=== PATIENT | female | born 1945 | race Caucasian/White ===

== ENCOUNTER 2016-10-31 15:51 | Emergency (ER) | payer MEDICARE, OTHER ==
[~2016-10-31] VITALS: Ht 165.1 cm; Wt 97.3 kg
[2016-10-31 16:05] VITALS: BP 152/92; PULSE 95; RESP 16; TEMP 99.2; O2SAT 95
--- NOTE | 2016-10-31 16:58 | PD ---
HPI Chief Complaint: Skin Problem Time Seen by Provider: 16:47 Travel History International Travel<30 days: No Contact w/Intl Traveler<30days: No Traveled to known affect area: No History of Present Illness HPI This 71-year-old female is complaining of a red hot rash on her right thigh. sHe has been having it for 3 or 4 days. She had a small amount of drainage from that she went to a ceramic chemist earlier today who made a small incision and then told her to come here. She is not aware of any fever or chills. She does not have diabetes. She has had multiple boils in the past. PFSH Past Medical History Cardiovascular Problems: Yes (htn on meds) Respiratory: Yes (asthma) ?: Not Social History Tobacco Use: No Allergies-Medications (Allergen,Severity, Reaction): Coded Allergies: No Known Allergies (Unverified , 10/31/16) Reported Meds & Prescriptions Reported Meds & Active Scripts Active Reported Loratadine 10 Mg Tab 10 Mg PO DAILY Levothyroxine (Levothyroxine Sodium) 100 Mcg Tab 100 Mcg PO DAILY Digestive Advantage Probiotic (Lactobacillus Rhamnosus (GG)) 1 Chew 1 Tab CHEW DAILY Glucosamine-Chondroitin 500-400 Mg Cap 1 Cap PO BID Alphagan P Opth Drops (Brimonidine Tartrate) 0.1% Soln 1 Drop EACH EYE BID Lumigan Opth Drops (Bimatoprost) 0.01% Soln 1 Drop EACH EYE HS Atorvastatin (Atorvastatin Calcium) 40 Mg Tab 40 Mg PO HS Amlodipine (Amlodipine Besylate) 10 Mg Tab 10 Mg PO DAILY Diovan Hct (Valsartan-Hydrochlorothiazide) 160-25 Mg Tab 1 Tab PO DAILY Omeprazole 20 Mg Tab 20 Mg PO BID Review of Systems General / Constitutional: No: Fever, Chills Eyes: No: Diploplia, Blurred Vision Cardiovascular: No: Chest Pain or Discomfort, Palpitations Respiratory: No: Cough, Shortness of Breath Gastrointestinal: No: Nausea, Vomiting Genitourinary: No: Frequency, Dysuria Musculoskeletal: No: Myalgias Skin: Positive Rash Neurologic: No: Weakness, Dizziness Hematologic/Lymphatic: No: Easy Bruising Physical Exam Narrative GENERAL: Well-developed female SKIN: Warm and dry. There is an area of erythema on the medial anterior aspect of the right thigh. There is some central induration HEAD: Atraumatic. Normocephalic. EYES: Pupils equal and round. No scleral icterus. No injection or drainage. ENT: No nasal bleeding or discharge. Mucous membranes pink and moist. NECK: Trachea midline. No JVD. GASTROINTESTINAL: Abdomen soft, non-tender, nondistended. Hepatic and splenic margins not palpable. MUSCULOSKELETAL: No obvious deformities. No clubbing. No cyanosis. No edema. NEUROLOGICAL: Awake and alert. No obvious cranial nerve deficits. Motor grossly within normal limits. Normal speech. PSYCHIATRIC: Appropriate mood and affect; insight and judgment normal. Data Data Last Documented VS Vital Signs Date Time Temp Pulse Resp B/P Pulse Ox O2 Delivery O2 Flow Rate FiO2 10/31/16 16:05 99.2 95 16 152/92 95 Orders Sulfamet-Trimeth Ds 800-160 Mg (Bactrim (10/31/16 17:00) Lidocai-Epi 1%-1:100,000 Inj (Xylocaine- (10/31/16 17:00) MDM Medical Decision Making Medical Screen Exam Complete: Yes Emergency Medical Condition: Yes Medical Record Reviewed: No Differential Diagnosis Differential includes cellulitis of the thigh, abscess of the thigh Narrative Course I&D was performed and pus was obtained. Xeroform packing was inserted. The patient is to continue her Bactrim which she got from a ceramic chemist Procedures Procedure Narrative After verbal consent was obtained. He was cleaned with Betadine. It was anesthetized with 1% lidocaine with adrenaline. Incision was made and thick pus obtained the area of induration. 10 cm of packing iodoform quarter-inch was inserted. Patient tolerated the procedure well Diagnosis Primary Impression: Abscess of right thigh Disposition: DISCHARGE HOME Condition: Stable Jairo Velázquez MD Oct 31, 2016 16:58
[2016-10-31] MEDS ORDERED: SULFAMETHOXAZOLE-TRIMETHOPRIM DS 800-160 MG TAB PO ONE (17:00)
[2016-10-31] MEDS ORDERED: LIDOCAINE 1%/EPINEPHrine 1:100,000 SOLN 20 ML VIAL INFIL ONE (17:00)
[2016-10-31] MEDS ORDERED: ATOR40TA16 PO (17:05)
[2016-10-31] MEDS ORDERED: LUMI0.01 EACH EYE (17:05)
[2016-10-31] MEDS ORDERED: LEVO100T5 PO (17:05)
[2016-10-31] MEDS ORDERED: OMEP20TA PO (17:05)
[2016-10-31] MEDS ORDERED: DIOV160T9 PO (17:05)
[2016-10-31] MEDS ORDERED: LORA10TA PO (17:05)
[2016-10-31] MEDS ORDERED: PROB1CHW4 CHEW (17:05)
[2016-10-31] MEDS ORDERED: ALPH0.1S EACH EYE (17:05)
[2016-10-31] MEDS ORDERED: GLUC1CAP14 PO (17:05)
[2016-10-31] MEDS ORDERED: AMLO10TA2 PO (17:05)
[2016-10-31 17:55] VITALS: BP 145/92; PULSE 92; RESP 18; O2SAT 98
== END 2016-10-31 17:55 | disposition home or self-care (01) ==
LOC: PHED 15:51
DX: L02.415 Cutaneous abscess of right lower limb (principal); I10 Essential (primary) hypertension; J45.909 Unspecified asthma, uncomplicated; B95.61 Methicillin susceptible Staphylococcus aureus infection as the cause of diseases classified elsewhere
CPT/HCPCS: 10061; 86403; 87070; 87186; 87205

== ENCOUNTER 2016-11-02 16:59 | Emergency (ER) | payer MEDICARE, OTHER ==
[~2016-11-02] VITALS: Ht 167.6 cm; Wt 97.0 kg
[~2016-11-02 16:59] MED LIST: ALPH0.1S EACH EYE; AMLO10TA2 PO; ATOR40TA16 PO; DIOV160T9 PO; GLUC1CAP14 PO; LEVO100T5 PO; LORA10TA PO; LUMI0.01 EACH EYE; OMEP20TA PO; PROB1CHW4 CHEW
[2016-11-02 17:03] VITALS: BP 155/81; PULSE 104; RESP 15; TEMP 98.5; O2SAT 94
--- NOTE | 2016-11-02 17:51 | PD ---
HPI Chief Complaint: Wound/Suture/Staple Re-Check Time Seen by Provider: 17:51 Travel History International Travel<30 days: No Contact w/Intl Traveler<30days: No Traveled to known affect area: No History of Present Illness HPI 71-year-old female presents to the ED for reevaluation of right-sided thigh abscess. Patient was initially seen on , diagnosed with abscess of the right thigh, prescribed Bactrim and mupirocin ointment. The patient endorses compliance with the medication, states that the area of redness had spread beyond the border that was marked at the first she denies fever, chills, limitations to range of motion of the extremity, numbness, tingling, weakness of the extremity. She has a follow-up appointment with her physician tomorrow. PFSH Past Medical History Asthma: Yes Cardiovascular Problems: Yes (htn on meds) High Cholesterol: Yes Hypertension: Yes Respiratory: Yes (asthma) Thyroid Disease: Yes (Hypo-) ?: Not Menopausal: Yes Tubal Ligation: Yes Past Surgical History Tonsillectomy: Yes Other Surgery: Yes (Abscess) Social History Alcohol Use: Yes (Rarely) Tobacco Use: No Substance Use: No Allergies-Medications (Allergen,Severity, Reaction): Coded Allergies: No Known Allergies (Unverified , 11/02/16) Reported Meds & Prescriptions Reported Meds & Active Scripts Active Reported Sulfamethoxazole-Trimethoprim 800-160 Mg Tab 1 Tab PO BID Loratadine 10 Mg Tab 10 Mg PO DAILY Levothyroxine (Levothyroxine Sodium) 100 Mcg Tab 100 Mcg PO DAILY Digestive Advantage Probiotic (Lactobacillus Rhamnosus (GG)) 1 Chew 1 Tab CHEW DAILY Glucosamine-Chondroitin 500-400 Mg Cap 1 Cap PO BID Alphagan P Opth Drops (Brimonidine Tartrate) 0.1% Soln 1 Drop EACH EYE BID Lumigan Opth Drops (Bimatoprost) 0.01% Soln 1 Drop EACH EYE HS Atorvastatin (Atorvastatin Calcium) 40 Mg Tab 40 Mg PO HS Amlodipine (Amlodipine Besylate) 10 Mg Tab 10 Mg PO DAILY Diovan Hct (Valsartan-Hydrochlorothiazide) 160-25 Mg Tab 1 Tab PO DAILY Omeprazole 20 Mg Tab 20 Mg PO BID Review of Systems Except as stated in HPI: all other systems reviewed are Neg Physical Exam Narrative GENERAL: Well-nourished, well-developed white female in no acute distress SKIN: Warm and dry. SKIN: There is an indurated area in the right anterior thigh which measures about 4 cm in diameter. No fluctuance, 1 cm incision with a mild amount of purulent drainage. There is a wide zone of nontender inflammation around it but no lymphangitis. HEAD: Normocephalic. EYES: No scleral icterus. No injection or drainage. NECK: Supple, trachea midline. No JVD or lymphadenopathy. CARDIOVASCULAR: Regular rate and rhythm without murmurs, gallops, or rubs. RESPIRATORY: Breath sounds equal bilaterally. No accessory muscle use. GASTROINTESTINAL: Abdomen soft, non-tender, nondistended. MUSCULOSKELETAL: No cyanosis, or edema. BACK: Nontender without obvious deformity. No CVA tenderness. Data Data Last Documented VS Vital Signs Date Time Temp Pulse Resp B/P Pulse Ox O2 Delivery O2 Flow Rate FiO2 11/02/16 17:59 20 11/02/16 17:03 98.5 104 155/81 94 Orders Iv Access Insert/Monitor (11/02/16 17:58) Clindamycin Inj (Cleocin Inj) (11/02/16 18:00) Complete Blood Count With Diff (11/02/16 18:01) Comprehensive Metabolic Panel (11/02/16 18:01) Labs Laboratory Tests Test 11/02/16 18:30 White Blood Count 13.0 TH/MM3 Red Blood Count 5.46 MIL/MM3 Hemoglobin 15.0 GM/DL Hematocrit 44.7 % Mean Corpuscular Volume 81.8 FL Mean Corpuscular Hemoglobin 27.5 PG Mean Corpuscular Hemoglobin 33.6 % Concent Red Cell Distribution Width 12.4 % Platelet Count 232 TH/MM3 Mean Platelet Volume 9.6 FL Neutrophils (%) (Auto) 79.1 % Lymphocytes (%) (Auto) 10.2 % Monocytes (%) (Auto) 9.4 % Eosinophils (%) (Auto) 0.6 % Basophils (%) (Auto) 0.7 % Neutrophils # (Auto) 10.3 TH/MM3 Lymphocytes # (Auto) 1.3 TH/MM3 Monocytes # (Auto) 1.2 TH/MM3 Eosinophils # (Auto) 0.1 TH/MM3 Basophils # (Auto) 0.1 TH/MM3 CBC Comment DIFF FINAL Differential Comment Sodium Level 141 MEQ/L Potassium Level 3.3 MEQ/L Chloride Level 104 MEQ/L Carbon Dioxide Level 23.4 MEQ/L Anion Gap 14 MEQ/L Blood Urea Nitrogen 18 MG/DL Creatinine 1.20 MG/DL Estimat Glomerular Filtration 45 ML/MIN Rate Random Glucose 132 MG/DL Calcium Level 9.5 MG/DL Total Bilirubin 0.7 MG/DL Aspartate Amino Transf 21 U/L (AST/SGOT) Alanine Aminotransferase 33 U/L (ALT/SGPT) Alkaline Phosphatase 105 U/L Total Protein 8.2 GM/DL Albumin 4.0 GM/DL MDM Medical Decision Making Medical Screen Exam Complete: Yes Emergency Medical Condition: Yes Differential Diagnosis Abscess versus cellulitis versus sepsis versus other Narrative Course 71-year-old female presents to the ED for reevaluation of right-sided thigh abscess. Patient was initially seen on 10/31, diagnosed with abscess of the right thigh, prescribed Bactrim and mupirocin ointment. The patient endorses compliance with the medication, states that the area of redness had spread beyond the border that was marked at the first visit. Vitals reviewed. Patient is well-appearing. There is an indurated area in the right anterior thigh which measures about 4 cm in diameter. No fluctuance, 1 cm incision with a mild amount of purulent drainage. There is a wide zone of nontender inflammation around it but no lymphangitis. IV was established. Patient was administered gram of clindamycin IV. WBC 13.0. Patient was instructed to continue with outpatient antibiotics, follow-up with her doctor tomorrow as planned. She indicated understanding of the instructions and was amenable to plan of care. The patient stable discharged home. Diagnosis Primary Impression: Cellulitis of right thigh Referrals: Primary Care Physician Patient Instructions: Cellulitis (ED), General Instructions Additional Instructions: Rest, hydrate. Continue with all previously prescribed antibiotics oral as well as topical. Keep the wound clean, dry and covered. Change the dressing anytime it becomes wet or soiled. You may shower normally. Do not submerge the wound. After bathing pat of wound dry. Allow the wound to air dry for 10-15 minutes. Apply a thin layer of antibiotic ointment and a clean, dry dressing. Take the antibiotics as they are prescribed, even if your symptoms resolved. Utilize [id number] pain medications, as described on the label, as needed. Follow-up with your primary care provider tomorrow as planned. Return to the ED for any urgent or emergent medical condition. Disposition: 01 DISCHARGE HOME Condition: Stable Elenita Montelongo Nov 02, 2016 17:51
[2016-11-02] MEDS ORDERED: SULF1TAB23 PO (17:56)
[2016-11-02] MEDS ORDERED: CLINDAMYCIN INJ 900 MG in SODIUM CHLORIDE 0.9% INJ 100 ML IV ONE (18:00)
[2016-11-02 18:33] LABS: AUTOMATED NEUTROPHIL # 10.3 TH/MM3 (1.8-7.7); BASOPHIL # 0.1 TH/MM3 (0-0.2); BASOPHIL % 0.7 % (0.0-2.0); EOSINOPHIL # 0.1 TH/MM3 (0-0.4); EOSINOPHIL % 0.6 % (0.0-4.0); HEMATOCRIT 44.7 % (35.0-46.0); LYMPH % 10.2 % (9.0-44.0); LYMPHOCYTE # 1.3 TH/MM3 (1.0-4.8); MEAN CELL VOLUME 81.8 FL (80.0-100.0); MEAN CORPUSCULAR HEMOGLOBIN 27.5 PG (27.0-34.0); MEAN CORPUSCULAR HGB CONC 33.6 % (32.0-36.0); MONO % 9.4 % (0.0-8.0); NEUT % 79.1 % (16.0-70.0); PLATELET COUNT 232 TH/MM3 (150-450); RED BLOOD COUNT 5.46 MIL/MM3 (4.00-5.30); RED CELL DISTRIBUTION WIDTH 12.4 % (11.6-17.2)
[2016-11-02 18:36] LABS: HEMO FLAGS DIFF FINAL
[2016-11-02 18:42] LABS: CHLORIDE 104 MEQ/L (98-107); POTASSIUM 3.3 MEQ/L (3.5-5.1); SODIUM (NA) 141 MEQ/L (136-145)
[2016-11-02 18:45] LABS: ANION GAP 14 MEQ/L (5-15); BICARBONATE 23.4 MEQ/L (21.0-32.0)
[2016-11-02 18:46] LABS: BLOOD UREA NITROGEN 18 MG/DL (7-18)
[2016-11-02 18:48] LABS: ALT (GPT) 33 U/L (10-53); AST (GOT) 21 U/L (15-37)
[2016-11-02 18:49] LABS: GLOMERULAR FILTRATION RATE 45 ML/MIN (>89)
[2016-11-02 18:50] LABS: TOTAL BILIRUBIN ADULT 0.7 MG/DL (0.2-1.0)
[2016-11-02 18:51] LABS: ALKALINE PHOSPHATASE 105 U/L (45-117)
== END 2016-11-02 19:47 | disposition home or self-care (01) ==
LOC: PHED 16:59 → PHEFT 19:47
DX: L03.115 Cellulitis of right lower limb (principal); I10 Essential (primary) hypertension; E03.9 Hypothyroidism, unspecified
CPT/HCPCS: 80053; 85025; 96365